=== PATIENT | male | born 1940 | race Caucasian/White ===

== ENCOUNTER 2019-04-30 12:07 | Outpatient (CLI) | payer MEDICARE, OTHER, SELFPAY ==
--- NOTE | ~2019-04-30 | CT_ITS ---
EXAMINATION: CT chest abdomen pelvis w con EXAM DATE: 04/30/2019 13:00 INDICATION: Right-sided lung cancer. TECHNIQUE: Spiral CT of the chest, abdomen and pelvis was performed following intravenous injection o f 100 mL Omnipaque 350. Axial, coronal and sagittal images were reviewed. Coronal maximum intensity pixel images of chest reviewed. The dose-length product (DLP) for this examination was 534.87 mGy-c m. The exposure was tailored according to patient size (auto mA exposure control), and iterative rec onstruction (ASIR) was used as additional dose reduction technique. Comparison is made to prior exami nation from 02/19/2019. FINDINGS: CHEST: There is moderate amount of right apical airspace disease, extending into the hilum, probably combination of treated lung cancer, fibrosis. Multi segmental right basilar atelectasis. Chronic mo derate-sized malignant right pleural effusion with diffuse pleural thickening, along with more focal nodular pleural metastases in the posterior sulcus. There is large amount of debris in the bronchus intermedius and right-sided segmental bronchi. There is a right-sided Chemo-Port. Previously seen lef t basilar tree-in-bud pattern airspace disease has improved. There is no mediastinal, hilar or axilla ry lymphadenopathy. There is no pneumothorax. Heart normal in size. There is emphysema. There is moderate coronary arterial calcification, arterial sclerosis. The main, central pulmonary arteries a re dilated which can indicate elevated pulmonary arterial pressure, pulmonary arterial hypertension. No central pulmonary emboli. ABDOMEN PELVIS: Generalized body wall edema. There is hepatosplenomegaly, spleen measuring 23 cm in craniocaudal dimension. Pancreas, adrenal glands are unremarkable.. Gallbladder not identified, desi ent likely has had cholecystectomy. Portal and splenic veins are patent. Kidneys enhance symmetrica lly. There is no hydronephrosis. Mild left renal atrophy, left kidney midpole scarring. There is mil d prostatomegaly. The bladder is unremarkable. There is no retroperitoneal or pelvic lymphadenopath y. There is moderate scattered arteriosclerotic disease. There are chronic pelvic calcifications al carito regions of the ureterovesicular junctions bilaterally, probably phleboliths given absence of hydr onephrosis. These have been chronic, unchanged. The appendix is normal. The stomach and small bowel are unremarkable. There is expected amount of c olonic stool. No free intraperitoneal gas. Right third rib osteolytic lesion unchanged. Exam is essentially stable compared to prior study. IMPRESSION: 1. Treated right-sided lung cancer, stable. 2. Moderate-sized right-sided malignant pleural effusion. 3. Right third rib osteolytic lesion. 4. Right bronchial debris with right basilar multisegmental atelectasis. 5. Hepatosplenomegaly. 6. Other chronic findings. Reviewed, dictated and finalized at location A. [employer]
== END 2019-04-30 12:08 | disposition home or self-care (01) ==
LOC: ANHIMG 12:10
PROVIDERS: PCP Internal Medicine; Visit Provider Internal Medicine Hematology & Oncology
DX: C34.91 Malignant neoplasm of unspecified part of right bronchus or lung (principal); R16.1 Splenomegaly, not elsewhere classified; R16.0 Hepatomegaly, not elsewhere classified; J90 Pleural effusion, not elsewhere classified
CPT/HCPCS: 71260; 74177; Q9967